=== PATIENT | female | born 1995 | race African-American/Black ===

== ENCOUNTER 2019-11-27 15:40 | Emergency (ER) | payer OTHER ==
[2019-11-27 16:01] VITALS: BP 128/80
--- NOTE | 2019-11-27 16:02 | UC ---
Ear Complaint HPI - HPI Summary HPI Summary: 24-year-old female with left earache since yesterday. Denies any cold symptoms , no fever or chills. - History of Current Complaint Chief Complaint: UCEar Stated Complaint: LT EAR COMPLAINT Time Seen by Provider: 11/27/19 15:47 Hx Obtained From: Patient Hx Last Menstrual Period: 11/21/19 ?: No Onset/Duration: Gradual Onset Severity Initially: Mild Severity Currently: Mild Pain Intensity: 5 Aggravating Factors: Nothing Alleviating Factors: Nothing - Allergies/Home Medications Allergies/Adverse Reactions: Allergies Allergy/AdvReac Type Severity Reaction Status Date / Time No Known Allergies Allergy Verified 11/27/19 15:52 PMH/Surg Hx/FS Hx/Imm Hx Previously Healthy: Yes - Surgical History Surgical History: Yes Surgery Procedure, Year, and Place: tonsils at 4 yrs old - Family History Known Family History: Negative: Blood Disorder - Social History Alcohol Use: Occasionally Substance Use Type: None Smoking Status (MU): Never Smoked Tobacco Review of Systems All Other Systems Reviewed And Are Negative: Yes ENT: Positive: Ear Ache - Left earache since yesterday. Is Patient Immunocompromised?: No Physical Exam Triage Information Reviewed: Yes Appearance: Well-Appearing, No Pain Distress, Well-Nourished Vital Signs: Initial Vital Signs Temp 98.4 F 11/27/19 15:54 Pulse 80 11/27/19 15:54 Resp 18 11/27/19 15:54 BP 128/80 11/27/19 15:54 Pulse Ox 100 11/27/19 15:54 Vital Signs Reviewed: Yes Eyes: Positive: Conjunctiva Clear ENT: Positive: Hearing grossly normal, Pharynx normal, TMs normal, Uvula midline Neck: Positive: Supple, Nontender, No Lymphadenopathy Respiratory: Positive: Lungs clear, Normal breath sounds, No respiratory distress, No accessory muscle use Cardiovascular: Positive: RRR, No Murmur, Pulses Normal, Brisk Capillary Refill Musculoskeletal Exam: Normal Neurological Exam: Normal Psychological Exam: Normal Skin Exam: Normal Ear Complaint Course/Dx - Course Course Of Treatment: The patient's exam is normal. She insisted that she has an ear infection and wants an oral antibiotic however I advised her that the ear exam was normal and she does not presently have an ear infection. She then insisted on ear drops for an ear infection which I did not give because her ear is normal, ear canal is normal there is no swelling or erythema she has good landmarks. She was given verbal instructions to follow-up with [facility] or with her primary care provider. She left without written instructions. - Differential Dx/Diagnosis Provider Diagnosis: Otalgia, left ear Discharge ED - Sign-Out/Discharge Documenting (check all that apply): Patient Departure All imaging exams completed and their final reports reviewed: No Studies - Discharge Plan Condition: Good Disposition: HOME Patient Education Materials: Earache (ED) Referrals: [facility] [Outside] No Primary Care Phys,NOPCP [Primary Care Provider] - Additional Instructions: Increase fluids, take Tylenol as needed for pain and may alternate with ibuprofen. Follow-up with your primary care provider in 3 or 4 days if no improvement or [facility]. - Billing Disposition and Condition Condition: GOOD Disposition: Home - Attestation Statements Provider Attestation: This patient was not seen by me I was available for consult Chart reviewed [place]
== END 2019-11-27 16:15 | disposition home or self-care (01) ==
LOC: UCCORT 15:40
DX: H92.02 Otalgia, left ear (principal)
CPT/HCPCS: 99202; G0463